=== PATIENT | male | born 1945 | race Caucasian/White ===

== ENCOUNTER → 2019-06-01 | Outpatient (CLI) | payer MEDICARE, OTHER ==
[~2019-06-01] VITALS: Ht 188 cm; Wt 91.2 kg
[~2019-06-01] MED LIST: DOXY100C2 PO; LISI10TA7 PO; LOVA20TA3 PO; METO25TA6 PO; REGADENOSON 0.4 MG/5 ML PF SYG IVP SCH; [UNRECOGNIZED DRUG - CODE] PO
== END | disposition home or self-care (01) ==
LOC: SHCH 08:05
PROVIDERS: ATTEND Internal Medicine Cardiovascular Disease
DX: I25.10 Atherosclerotic heart disease of native coronary artery without angina pectoris (principal)
CPT/HCPCS: 78452; 93017; 96374; A9500 ×2; J2785

== ENCOUNTER 2019-07-29 05:55 | Day surgery (SDC) | payer MEDICARE ==
[2019-07-27 15:15] VITALS: BP 143/72
[2019-07-27 15:18] LABS: BASOPHILS % (AUTO) 0.3 % (0.0-5.0); EOSINOPHILS % (AUTO) 0.8 % (0.0-8.0); HEMATOCRIT 40.4 % (42-54); LYMPHOCYTES % (AUTO) 22.6 % (21.0-51.0); MEAN CORPUSCULAR HEMOGLOBIN 34.5 pg (27.0-33.0); MEAN CORPUSCULAR HGB CONC 34.2 g/dL (32.0-36.0); MEAN CORPUSCULAR VOLUME 101.1 fL (79-99); MONOCYTES % (AUTO) 10.1 % (3.0-13.0); NEUTROPHILS % (AUTO) 66.2 % (40.0-77.0); NUCLEATED RED BLOOD CELLS 0.1 % (0.0-0.19); PLATELET COUNT (AUTO) 228 K/uL (130-400); RED CELL DISTRIBUTION WIDTH 12.7 % (11.0-15.5); WHITE BLOOD COUNT (AUTO) 5.5 K/uL (4.8-10.8)
[2019-07-27 15:24] LABS: APPEARANCE,URINE Clear (CLEAR); BILIRUBIN,URINE Negative (NEGATIVE); COLOR,URINE Yellow (YELLOW); GLUCOSE, URINE (UA) Negative (NEGATIVE); KETONES,URINE Negative (NEGATIVE); LEUKOCYTE ESTERASE ,URINE Negative (NEGATIVE); NITRATE,URINE Negative (NEGATIVE); OCCULT BLOOD,URINE Negative (NEGATIVE); PROTEIN,URINE Negative (NEGATIVE); UROBILINOGEN,URINE 0.2 mg/dL (0.2-1.0)
[2019-07-27 15:27] LABS: CREATININE 0.9 mg/dL (0.5-1.5); POTASSIUM 4.1 mmol/L (3.5-5.1)
[2019-07-27 15:31] LABS: INR 0.95 (0.85-1.15); PARTIAL THROMBOPLASTIN TIME 25.9 SEC (26.3-35.5)
[~2019-07-29] VITALS: Ht 182.9 cm; Wt 93.0 kg
[2019-07-29] VITALS (11 sets, daily range): BP systolic 137–169; BP diastolic 68–87
[~2019-07-29 05:55] MED LIST changes: +ATOR40TA71 PO; -DOXY100C2 PO; +DRAMAMINE PO; +LISI-613 PO; -LISI10TA7 PO; -LOVA20TA3 PO; -METO25TA6 PO; +METO50TA18 PO; -REGADENOSON 0.4 MG/5 ML PF SYG IVP SCH; +SODIUM CHLORIDE 0.9% 500ML 500 ML IV SCH; -[UNRECOGNIZED DRUG - CODE] PO
--- NOTE | 2019-07-29 06:30 | NUR ---
PATIENT ARRIVED PATIENT ARRIVED TO DAY PATIENT ACCOMPANIED BY SPOUSE (RAFIA). PATIENT AAOX3, RESPIRATIONS UNLABORED, VITAL SIGNS STABLE, DENIES ANY PAIN AT THIS TIME. 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 PROCEDURE VERIFIED AND CONFIRMED WITH PATIENT. HOSPITAL ROUTINE EXPLAINED TO PATIENT AND PATIENT VERBALIZED UNDERSTANDING. ALL QUESTIONS/CONCERNS ADDRESSED. SIDERAILS UP X2, BED IN LOWEST POSITION, CALL MARTÍNEZ IN REACH.
[2019-07-29] MEDS ORDERED: ASPI-1012 PO (07:45)
[2019-07-29] MEDS ORDERED: SODIUM CHLORIDE 0.9% 1000ML 1,000 ML IV ONE (07:58)
[2019-07-29] MEDS ORDERED: NITROGLYCERIN 5 MG/ML 10 ML VIAL IV ONE (08:27)
[2019-07-29] MEDS ORDERED: IOHEXOL 350 MG/ML 100ML INFUS..BTL IV ONE (08:27)
[2019-07-29] MEDS ORDERED: BIVALIRUDIN 250 MG/VIAL IV ONE (08:27)
[2019-07-29] MEDS ORDERED: MIDAZOLAM HCL 1 MG/ML 2ML VIAL ONE (08:27)
[2019-07-29] MEDS ORDERED: LIDOCAINE HCL 2% 20ML ONE (08:28)
--- NOTE | 2019-07-29 08:35 | NUR ---
PATIENT TRANSFERRED PATIENT TAKEN TO HOME HEALTH NURSE VIA BED BY ANTONELLA FLORES. PATIENT'S SPOUSE INSTRUCTED TO WAIT IN ROOM IN ORDER TO SPEAK WITH DR KAMARA FOLLOWING PROCEDURE. SPOUSE VERBALIZED UNDERSTANDING.
[2019-07-29] MEDS ORDERED: HEPARIN SODIUM 1000UNIT/ML 10ML VIAL ONE ×2 (09:26→09:29)
[2019-07-29] MEDS ORDERED: ADENOSINE 90MG/30ML VIAL IV ONE (09:26)
[2019-07-29] MEDS ORDERED: IOHEXOL-350 50ML VIAL IV ONE (09:37)
[2019-07-29] MEDS ORDERED: LABETALOL 20 MG/4 ML DISP.SYRIN IV ONE (09:57)
[2019-07-29] MEDS ORDERED: SODIUM CHLORIDE 0.9% 1000ML 1,000 ML IV SCH (09:57)
[2019-07-29] MEDS ORDERED: LABETALOL HCL 5 MG/ML 20ML VIAL IV ONE (10:08)
[2019-07-29 11:09] LABS: CHOLESTEROL 136 mg/dL (<200); HDL CHOLESTEROL 112 mg/dL (29-71); LDL DIRECT 71 mg/dL (0-99); TRIGLYCERIDES 33 mg/dL (30-200)
== END 2019-07-29 16:40 | disposition home or self-care (01) ==
LOC: DAH 05:55
PROVIDERS: ATTEND Internal Medicine Cardiovascular Disease
DX: I25.118 Atherosclerotic heart disease of native coronary artery with other forms of angina pectoris (principal); R94.39 Abnormal result of other cardiovascular function study; I10 Essential (primary) hypertension; E78.5 Hyperlipidemia, unspecified; Z89.512 Acquired absence of left leg below knee; Z79.899 Other long term (current) drug therapy; Z72.89 Other problems related to lifestyle; Z87.891 Personal history of nicotine dependence; Z79.82 Long term (current) use of aspirin; Z98.49 Cataract extraction status, unspecified eye; Z98.890 Other specified postprocedural states; Z79.01 Long term (current) use of anticoagulants
CPT/HCPCS: 36415 ×2; 71045; 80048; 80061; 81003; 85025; 85610; 85730; 93005; 93458; 93571; 93572; A4215; A4216; A4221; A4222; A4223 ×3; A4606; A4663; C1760; C1769; C1887; C1894; J0153; J1644 ×2; J2250; J3490 ×3; J7030; Q9965 ×2; Q9967 ×2; 99156; 99157; J0583